=== PATIENT | male | born 1960 | race Caucasian/White ===

== ENCOUNTER 2018-07-11 06:06 | Day surgery (SDC) | payer OTHER ==
[~2018-07-11] VITALS: Ht 172.7 cm; Wt 76.7 kg
[~2018-07-11 06:06] MED LIST: ALBU90OI INH; ASPI81CH PO; Acetaminophen1 EAC2 PO; BUDE10.22 INH; DOCU100 PO; Daily Multiple1 EACH PO; HYDACE10B PO; HYDACE5 PO; LEVSOD50 PO; MONT10T PO; TUMS300 MG PO; TYLENOL PM PO
== END 2018-07-11 12:57 | disposition home or self-care (01) ==
LOC: ORSCMMR 06:06 → ORD 07:30 → ORSCMMR 07:30
PROVIDERS: Surgery
PROC: 0HB1XZX Excision of Face Skin, External Approach, Diagnostic (ICD-10-PCS; principal; 2018-07-11 07:30)
DX: D03.39 Melanoma in situ of other parts of face (principal); E03.9 Hypothyroidism, unspecified; J45.909 Unspecified asthma, uncomplicated; Z79.899 Other long term (current) drug therapy
CPT/HCPCS: 88305; J0330; J1100; J1885; J2250; J2370; J2405; J3010; J7120

== ENCOUNTER → 2018-08-11 | Outpatient (CLI) | payer OTHER | END | disposition home or self-care (01) | LOC: PLD 10:37 → LAB SHORT 10:37 | DX: D22.5 Melanocytic nevi of trunk (principal); D22.71 Melanocytic nevi of right lower limb, including hip; D22.72 Melanocytic nevi of left lower limb, including hip | CPT/HCPCS: 88305 ==

== ENCOUNTER → 2018-09-04 | Outpatient (CLI) | payer OTHER | END | disposition home or self-care (01) | LOC: LAB SHORT 15:55 → PLD 15:55 | DX: D03.72 Melanoma in situ of left lower limb, including hip (principal); D48.5 Neoplasm of uncertain behavior of skin | CPT/HCPCS: 88305 ==

== ENCOUNTER → 2020-08-12 | Outpatient (CLI) | payer BC ==
[2020-08-17 09:34] LABS: Stool Occult Bld Immuno 1 Negative (NEGATIVE)
[2020-08-26 12:25] LABS: Stool Occult Bld Immuno 2 Negative (NEGATIVE)
== END | disposition home or self-care (01) ==
LOC: LAB 11:30 → LAB SHORT 11:30
PROVIDERS: Internal Medicine Gastroenterology
DX: Z12.11 Encounter for screening for malignant neoplasm of colon (principal)
CPT/HCPCS: G0328

== ENCOUNTER → 2020-10-18 | Outpatient (CLI) | payer BC | LOC: PLD 11:58 → LAB SHORT 11:58 | DX: D48.5 Neoplasm of uncertain behavior of skin (principal); D22.72 Melanocytic nevi of left lower limb, including hip; Z88.0 Allergy status to penicillin | CPT/HCPCS: 88305 ==

== ENCOUNTER → 2021-06-06 | Outpatient (CLI) | payer BC | END | disposition home or self-care (01) | LOC: LAB SHORT 11:14 | DX: D48.5 Neoplasm of uncertain behavior of skin (principal) | CPT/HCPCS: 88305 ==

== ENCOUNTER → 2021-07-04 | Outpatient (CLI) | payer BC | LOC: LAB SHORT 13:45 → LAB 13:45 | DX: D03.59 Melanoma in situ of other part of trunk (principal) | CPT/HCPCS: 88305 ==